=== PATIENT | female | born 1950 | race Caucasian/White ===

== ENCOUNTER 2016-04-14 01:04 | Day surgery (SDC) | payer MEDICARE ==
[~2016-04-14] VITALS: Ht 167.6 cm; Wt 89.7 kg
[2016-04-14] VITALS (9 sets, daily range): BP systolic 100–123; BP diastolic 49–65; PULSE 56–68; RESP 16–18; O2SAT 98–100
[~2016-04-14 01:04] MED LIST: FAMO20T PO; FOLI0.8T6 PO; LEVO125T6 PO; LOSA100T29 PO; MAGN400T4 PO; MELA3TAB35 PO; SEVE800T7 PO
[2016-04-14] MEDS ORDERED: CeFAZolin 2 Gm/50 mL D5W Duplex Bag IV ONE (10:37)
[2016-04-14] MEDS ORDERED: 0.9% Sodium Chloride 1,000 ML ONE (10:38)
[2016-04-14] MEDS ORDERED: Heparin 5,000 Units/500 mL NS Premix IV ONE (10:42)
[2016-04-14] MEDS ORDERED: Heparin 1,000 Unit/mL 10 mL Inj ONE (10:42)
[2016-04-14] MEDS ORDERED: fentaNYL-PF 50 mCg/mL 2 mL Inj ONE (11:10)
[2016-04-14 11:27] LABS: INR 0.97 ratio
[2016-04-14 11:33] LABS: BASOPHILS % (AUTO) 0.6 % (0-3); EOSINOPHILS % (AUTO) 2.8 % (0-5); MONOCYTES % (AUTO) 9.1 % (4-12); Mean Corpuscular Hemoglobin 30.1 pg (27.0-35.0); Mean Corpuscular Volume 94.7 fL (81-100); NEUTROPHILS % (AUTO) 68.2 % (40-74); Platelet Count 259 bil/L (150-400)
--- NOTE | 2016-04-14 15:00 | NUR ---
BIA DISCHARGE PT WAS ADMITTED FOR FISTULAGRAM TODAY AT 0930. SHE RETURNED FROM BED MANAGER AT 1200. BEDREST X2HRS AND THEN PURSESTRING WAS DISCONTINUED. NO BLEEDING OR HEMATOMA NOTED. DR REYES ALSO CHECKED SITE PRIOR TO DISCHARGE. PT IS TO F/U WITH DIALYSIS TOMORROW 04/15/16 PLANNED. PT WAS DISCHARGED IN STABLE CONDITION AT 1430 WITH FRIEND, EMILIA.
--- NOTE | 2016-04-14 15:21 | DRSVH ---
PROCEDURE: ARTERIO VENOUS FISTULOGRAM (PNL) INDICATIONS: OUTFLOW OBSTR. TECHNIQUE: FLUOROSCOPY TIME: 1.8 minutes. COMPARISON: [facility], XA, ARTERIO VENOUS FISTULOGRAM (PNL), 03/03/2014, 11:46. Technique: 1. Conscious sedation for 60 minutes. 2. Fistulogram to the level of the SVC. 3. Plan angioplasty of 2 focal high-grade stenoses within the existing cephalic vein stent. 4. Completion fistulogram. The indications, alternatives, benefits, risks, and complications of the procedure were explained to the patient.. Informed written consent was obtained and placed in the chart. The patient was jenna t to the angiography suite, and conscious sedation was administered intravenously by shelter staff, while continuous cardiorespiratory monitoring was performed. Maximum sterile barrier technique was employed per standard protocol, including hand hygiene, cap, ma sk, sterile gown and gloves, and 2% chlorhexidine. One percent lidocaine was used to anesthetize the skin over the area of interest. Using a micropuncture kit, the venous outflow was accessed in an ant egrade fashion. Fistulogram was performed in stations to the level of the SVC. 2 focal high-grade kenan noses were present within the central cephalic vein stent. These were angioplastied with a 8mm by 40 mm high pressure balloon. Completion fistulogram was performed. Reflux fistulogram was performed at t he arteriovenous anastomosis. The balloon was removed, the sheath was removed, and hemostasis was ach ieved. FINDINGS: Initial fistulogram demonstrates 2 focal high-grade stenoses one within the central portio n and what within the peripheral portion of the cephalic stents. Completion fistulogram after angiopl asty this region demonstrates no residual stenosis. The arteriovenous anastomosis is widely patent. IMPRESSION: 1. Status post angioplasty for 2 focal high-grade stenoses within the cephalic stents as above withou t residual stenosis. Dictated by: Gale Nix M.D. on 04/14/2016 at 15:20 Approved by: Gale Nix M.D. on 04/14/2016 at 15:20
[2016-04-15] MEDS ORDERED: CeFAZolin 2 Gm/50 mL D5W IV Premix IV ONE (06:00)
== END 2016-04-14 23:59 | disposition home or self-care (01) ==
LOC: SPI 01:04
PROVIDERS: ATTEND Radiology Vascular & Interventional Radiology
DX: T82.856A Stenosis of peripheral vascular stent, initial encounter (principal); T82.858A Stenosis of other vascular prosthetic devices, implants and grafts, initial encounter; Y83.2 Surgical operation with anastomosis, bypass or graft as the cause of abnormal reaction of the patient, or of later complication, without mention of misadventure at the time of the procedure; N18.6 End stage renal disease; I12.0 Hypertensive chronic kidney disease with stage 5 chronic kidney disease or end stage renal disease; E03.9 Hypothyroidism, unspecified; I77.1 Stricture of artery; L56.8 Other specified acute skin changes due to ultraviolet radiation; M31.30 Wegener's granulomatosis without renal involvement; Z95.820 Peripheral vascular angioplasty status with implants and grafts; Z99.2 Dependence on renal dialysis
CPT/HCPCS: 36415; 36905; 85025; 85610; 99152; C1725; C1769; C1894; J0690; J1644; J2250; J3010; J7030; Q9967